=== PATIENT | male | born 1950 | race Caucasian/White ===

== ENCOUNTER 2024-09-26 13:19 | Emergency (ER) | payer MEDICARE, OTHER, SELFPAY ==
[2024-09-26 13:25] VITALS: BP 145/85
[2024-09-26 16:40] VITALS: BP 134/85
--- NOTE | 2024-09-26 17:08 | ED.GENMED ---
History of Present Illness
General
Chief Complaint: Dizziness
Source: patient
Exam Limitations: none
Time Seen by Provider: 09/26/24 15:41
Nursing documentation reviewed up to this point in time: agreed with
History of Present Illness
History of Present Illness:
74 y/o M cardiomyoapthy, CHF, previous prostate CA
pacer
vertigo
here because of a dizzy spell while on the way to the cafeteria at [facility]
pt has dementia and lives with his who has worse dementia
daughte ris here saying that she believes her mom's fear of leaving the apartment makes her dad not get enough to eat and drink and thinks he has been dehydrated
apparently according to staff who witnessed, pt was walking to the dining area and turned the corner and felt dizzy and started to fall but was caught by someone
he never passed out
he actually doesn't have real recollection of this event becuase of his dementia, which is typical for him
daughter says that he may be a little worse at the moment but he is stressed and hugnry
she doesn't believe he has been eating well
pt does have long h istory
Past History
Past History
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
Social History
Tobacco: Non-smoker
Alcohol: None
Personal:
Living: with family
Phy Exam
Physical Exam
Physical Exam:
GENERAL: Alert , in no apparent distress
HEAD: NCAT
EYE: pupils equal and reactive, no nystagmus, no photophobia, mildly pale
NECK: Supple,full rom, nontender
ENT: o/p clr, mmm.
CARDIAC: Regular rate and rhythm . no edema
LUNGS: Clear breath sounds bilaterally, no acute respiratory distress, no wheezes/rales/rhonchi
ABDOMEN: Soft, without focal tenderness, no r/g, no cvat
NEUROLOGICAL: Alert and orientedx 2-3, poor memory, poor recall of events; , cn intact, no facial asymmetry, 5/5 strength in UE/LE, sensation intact, romberg neg, ambulates without assistance, neg pronator drift
SKIN: Warm and dry, skin intact.
MUSCULOSKELETAL: No edema, well perfused.
PSYCH: Normal and appropriate interaction.
Course
Orders/Labs/Results
Orders:
Orders
09/26/24 17:07
Orthostatic VS- Treatment ONCE
pacemaker [Interrogate Pacemaker- Treatment] ONCE
09/26/24 17:08
Electrocardiogram (*1) Urgent
Reason for Study: Other
Other Reason for Exam: dizziness
EKG- Treatment ONCE
09/26/24 17:13
Complete Blood Count/With Diff Urgent
Comprehensive Metabolic Panel Urgent
Magnesium Urgent
Troponin I Urgent
09/26/24 18:02
0.9% Sodium Chloride 500 ml [Nss] 500 ml IV BOLUS
09/26/24 18:29
Urinalysis Reflex To Culture Urgent
Date Specimen was Collected: 09/26/24
Time Specimen was Collected: 18:28
Urine Microscopic Reflex Cult Urgent
Urine Culture Urgent
LINDA Source: U
Specimen Description:
Date Specimen was Collected: 09/26/24
Time Specimen was Collected: 18:28
Abnormal Lab Results
09/26/24 09/26/24
17:13 18:29
RBC 3.98 L 10^6/uL
(4.70-6.10)
Hgb 12.6 L g/dL
(13.0-18.0)
Hct 36.4 L %
(39.0-52.0)
MCH 31.7 H pg
(27.0-31.0)
Monocytes % 9.7 H %
(1.7-9.3)
Carbon Dioxide 32 H mmol/L
(22-30)
Total Protein 6.2 L g/dl
(6.3-8.2)
Leukocyte Esterase Rfl 1+ A
(Negative)
Urine Bacteria (Reflex) Few A
(Negative)
09/26/24 17:13
09/26/24 17:13
Vital Signs
Initial and Last Documented VS:
Initial Vital Signs
Temp Pulse Resp BP Pulse Ox
36.9 C 60 16 145/85 98
09/26/24 13:25 09/26/24 13:25 09/26/24 13:25 09/26/24 13:25 09/26/24 13:25
Last Documented Vital Signs
Temp Pulse Resp BP Pulse Ox
36.9 C 60 18 134/85 97
09/26/24 13:25 09/26/24 16:40 09/26/24 16:40 09/26/24 16:40 09/26/24 16:40
MDM/Problems Addressed
Differential Diagnosis Includes:
near sycnope, vertigo
MDM/Problems Addressed:
74 y/o M
h/o dizzy spells dx as vertigo but described as tunnel vision or off balance feeling
was walking and had one of these episodes causing him to almost fall, caught by staff at his assisted living; pt has dementia and has signivficant dementia and daughter believes he hasn't been eating/drinking well and is dehydated, as a
confounder
but that this episode today probalby was one of his typical dizzy spells
since bieng here, he is at his baseline mostly, a little more confused at times but pretty standard she thinks
asymtpoamtic, able to walk tot he bathroom
hungry, hadn't eaten
work up with ekg paced rhythm, trop neg, wbc normal, hg 12.6, bun 30
probably deydrated
pacer interrogated and i spoke witht e rep, no events
offered ivf but pt ate here and wants to go home
will send UA off and pending Urine culture; hold abx;
*Critical Care Note
Total Time (30-74mins, 75-104mins- exclusive of procedures): Not Applicable
ED Attending Note
-
Portions of this chart may have been created with voice recognition software.� Occasional wrong word or��sound alike� substitutions may have occurred due to the inherent limitations of voice recognition software.
Discharge Plan
Departure
Patient Disposition: Home (Routine Discharge)
Date of Disposition: 09/26/24
Time of Disposition: 18:24
Patient with high blood pressure during this ER visit?: No
Condition: Fair
Covid-19: Not Applicable
Discharge Problem:
Dizziness, Dehydration
Instructions: Dizziness, Nonvertigo, (DC)
Referrals:
Yasmin Del Angel, [Family Provider] - Follow up in 2-3 days
Activity Restrictions/Additional Instructions:
YOU WERE PROBABLY A LITTLE DEHYDRATED TODAY WHICH CAUSED THE DIZZINESS
YOU NEED TO MAKE SURE YOU ARE EATING 3 MEALS A DAY AND STAYING HYDRATED
YOUR PACER IS WORKING WELL
RETURN FOR ANY CONCERNS.
Interventions
Interventions:
*Risk Screen - Suicide Last Done: 09/26/24 13:25
*Neglect/Abuse Screening Last Done: 09/26/24 13:25
*Nursing Disposition Last Done: 09/26/24 18:48
ED- Neurological Assessment Last Done: 09/26/24 16:29
ED Swallowing Screen Last Done: 09/26/24 17:55
Discharge Date and Time
Discharge Date/Time: 09/26/24 18:48
Print Language: SOMALI
[2024-09-26 17:28] LABS: % Basophils 0.5 % (0-2); % Eosinophils 5.9 % (0-6); % Immature Granulocytes 0.5 % (0-0.5); % Lymphocytes 29.5 % (20.5-51.1); % Monocytes 9.7 % (1.7-9.3); % Neutrophils 53.9 % (42.2-75.2); Absolute Eosinophils 0.4 10^3/uL (0-0.7); Absolute Monocytes 0.6 10^3/uL (0.1-0.6); Absolute Neutrophils 3.6 10^3/uL (1.4-6.5); Hematocrit 36.4 % (39.0-52.0); Hemoglobin 12.6 g/dL (13.0-18.0); Mean Corp Hgb Conc. 34.6 g/dL (33.0-37.0); Mean Corpuscular Hgb 31.7 pg (27.0-31.0); Mean Corpuscular Volume 91.5 fL (80.0-94.0); Mean Platelet Volume 10.1 fL (7.4-10.4); Nucleated Red Blood Cells % 0 % (-); Platelet Count 132 10^3/uL (130-400); Red Blood Cell Count 3.98 10^6/uL (4.70-6.10); Red Cell Dist. Width 13.4 % (11.5-14.5); White Blood Cell Count 6.6 10^3/uL (4.8-10.8)
[2024-09-26 17:38] LABS: ALT (SGPT) 27 U/L (0-50); AST (SGOT) 35 U/L (17-59); Albumin 3.7 g/dl (3.5-5.0); Alkaline Phosphatase 67 U/L (38-126); Blood Urea Nitrogen 15 mg/dl (9-20); Calcium 9.1 mg/dl (8.4-10.2); Carbon Dioxide 32 mmol/L (22-30); Chloride 106 mmol/L (98-107); Glucose 96 mg/dl (70-99); Magnesium 2.2 mg/dl (1.6-2.3); Potassium 4.7 mmol/L (3.5-5.1); Sodium 141 mmol/L (135-145); Total Bilirubin 0.9 mg/dl (0.2-1.3); Total Protein 6.2 g/dl (6.3-8.2); eGFR > 60.00
[2024-09-26 17:47] LABS: Troponin I < 0.012 ng/ml
[2024-09-26 18:37] LABS: Urine Albumin Negative (Neg - Trace); Urine Bilirubin Negative (Negative); Urine Character Clear (Clear); Urine Color Straw; Urine Glucose Negative (Negative); Urine Ketone Negative (Negative); Urine Leukocyte 1+ (Negative); Urine Nitrite Negative (Negative); Urine Occult Blood Negative (Negative); Urine Urobilinogen Negative (Neg - 1+)
[2024-09-26 18:53] LABS: Urine Bacteria Few (Negative); Urine Red Blood Cell 0-2 /HPF (0-2); Urine Squamous Cell 0-2 /LPF (Few); Urine White Cell 0-2 /HPF (0-5)
== END 2024-09-26 18:48 | disposition home or self-care (01) ==
LOC: EMR 13:19
PROVIDERS: Physician Assistant; EMERGENCY PHYSICIAN Emergency Medicine; FAMILY PHYSICIAN Family Medicine
DX: E86.0 Dehydration (principal); R42 Dizziness and giddiness; F03.90 Unspecified dementia, unspecified severity, without behavioral disturbance, psychotic disturbance, mood disturbance, and anxiety; I11.0 Hypertensive heart disease with heart failure; I50.9 Heart failure, unspecified; Z85.46 Personal history of malignant neoplasm of prostate; Z95.0 Presence of cardiac pacemaker
CPT/HCPCS: 99284; 93288; 80053; 81003; 81015; 83735; 84484; 85025; 87077; 87086; 93005

== ENCOUNTER 2025-02-26 09:01 | Emergency (ER) | payer MEDICARE, OTHER, SELFPAY ==
[2025-02-26 09:09] VITALS: BP 128/78
[2025-02-26 09:10] VITALS: BMI 29.3
--- NOTE | 2025-02-26 09:39 | ED.GENMED ---
Addendum entered and electronically signed by Andrey Beckman PA-C 02/28/25 07:04:
Urine culture with greater than 100,000 colony-forming units of presumptive E. coli. On Keflex. Sensitivities pending
Addendum entered and electronically signed by Carolina Vickers DO 02/26/25 14:22:
Patient's daughter was present at time of discharge. I reviewed all test results and treatment recommendations with her. She felt comfortable with this plan. Patient was discharged in good condition in her care
Original Note:
History of Present Illness
General
Chief Complaint: Dizziness
Time Seen by Provider: 02/26/25 09:13
Nursing documentation reviewed up to this point in time: agreed with
History of Present Illness
History of Present Illness:
74-year-old male presents to the ER for evaluation of vertigo. Patient admits that this has been an ongoing issue for at least the last several weeks. It makes him feel unsteady with ambulation but he does not use any walking assist devices as
daily. He does also have a history of dementia and vertigo. He denies any recent illness. He states he has been eating and drinking without difficulty. He does not believe that he took any medications for his symptoms this morning. He denies
ear pain. No change in vision. No focal weakness. No paresthesias to arms or legs. He denies any syncope or trauma
Past History
Past History
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
Social History
Tobacco: Non-smoker
Alcohol: None
Personal:
Living: with family
Phy Exam
Physical Exam
Physical Exam:
. Patient is awake, alert, oriented to person only, head is normocephalic atraumatic, wearing glasses, PERRL, EOMI, no nystagmus, bilateral tympanic membranes are within normal limits, no erythema, external auditory canals are normal, mucous
membranes moist, tongue is midline, no carotid bruits, no JVD, heart regular rate and rhythm not murmurs or ectopy, lungs are clear to auscultation without wheezes rales or rhonchi, abdomen is soft and nontender, 2+ DP and radial pulses present
symmetric, no peripheral edema noted, no dysdiadochokinesia, no ataxia, no pronator drift, no facial asymmetry noted, sensation intact symmetric x 4, GCS is 14 due to confusion
Course
Orders/Labs/Results
Orders:
Orders
02/26/25 09:21
ECG [Electrocardiogram (*1)] Urgent
Reason for Study: Vertigo / Dizzy
EKG- Treatment ONCE
02/26/25 09:25
CT Head W/o Iv Contrast Urgent
Comment:
Reason For Exam: vertigo
CR Chest - 2 Views Urgent
Comment:
Reason For Exam: cva
02/26/25 09:28
Complete Blood Count/With Diff Urgent
Comprehensive Metabolic Panel Urgent
02/26/25 09:42
Meclizine [Antivert] 25 mg PO NOW STA
02/26/25 11:44
Urinalysis Reflex To Culture Urgent
Date Specimen was Collected: 02/26/25
Time Specimen was Collected: 11:43
Urine Microscopic Reflex Cult Urgent
Urine Culture Urgent
LINDA Source: U
Specimen Description:
Date Specimen was Collected: 02/26/25
Time Specimen was Collected: 11:43
02/26/25 13:38
Cephalexin Monohydrate [Keflex] 500 mg PO NOW STA
Abnormal Lab Results
02/26/25 02/26/25
09:28 11:44
RBC 4.50 L 10^6/uL
(4.70-6.10)
MPV 10.7 H fL
(7.4-10.4)
Absolute Monos (auto) 0.8 H 10^3/uL
(0.1-0.6)
Monocytes % 10.2 H %
(1.7-9.3)
Eosinophils % 7.2 H %
(0-6)
BUN 23 H mg/dl
(9-20)
Glucose 106 H mg/dl
(70-99)
Ur Occult Blood Reflex 1+ A
(Negative)
Urine Nitrite (Reflex) Positive A
(Negative)
Leukocyte Esterase Rfl 1+ A
(Negative)
Urine Bacteria (Reflex) Many A
(Negative)
02/26/25 09:28
02/26/25 09:28
Vision CBC and chemistries are without significant abnormality
Vital Signs
Initial and Last Documented VS:
Initial Vital Signs
Temp Pulse Resp BP Pulse Ox
98.2 F 60 16 128/78 97
02/26/25 09:09 02/26/25 09:09 02/26/25 09:09 02/26/25 09:09 02/26/25 09:09
Last Documented Vital Signs
Temp Pulse Resp BP Pulse Ox
98.2 F 60 13 114/101 98
02/26/25 09:09 02/26/25 13:00 02/26/25 13:00 02/26/25 13:00 02/26/25 12:00
MDM/Problems Addressed
Differential Diagnosis Includes:
Differential diagnosis to consider but not limited to electrolyte dyscrasia, occult infection, intracranial hemorrhage, intracranial mass, M�ni�re's, exacerbation of chronic peripheral vertigo along with other etiology
Chronic conditions affecting care:
. Dementia, vertigo
*Radiology
Radiology exam reviewed: preliminary read by ED provider (. I independently viewed and interpreted two-view chest x-ray showing no acute process in comparison to prior films from 05/22/2021-pacer present, scarring noted left lung base chronic but
improved) and radiology read reviewed (IMPRESSION: No acute intracranial abnormality noted. Mild senescent white matter changes. Mild to moderate atrophy.)
*Pulse Oximetry
SaO2: 97
Oxygen Mode of Delivery: Room air
Patient hypoxic: no
*EKG
Interpreted by ED Provider?: Yes (I dependently viewed and interpreted twelve-lead EKG showing paced rhythm, rate 60, leftward axis, nonspecific tracing without evidence for ST elevation, similar to prior from 09/26/2024)
*Bench Repair Technician Interpretation
Rate: normal (I independently viewed and interpreted rhythm strip showing paced rhythm, no ectopy)
*Critical Care Note
Total Time (30-74mins, 75-104mins- exclusive of procedures): Not Applicable
Data Reviewed
Review of Other/Old Records Reveals: Records (I reviewed [facility] record brought to the ER with the patient from his residence at [facility] including his medication list and prior medical history which includes Alzheimer's, GERD,
constipation and vertigo along with prior pacemaker placed)
Update Note
Update Note:
Patient able to ambulate with a steady gait. Feeling better after meclizine. Urinalysis does show bacteria, will initiate Keflex. In review of electronic medical record he had a urine culture from earlier this year that was positive for
susceptible E. coli. Will plan for patient discharged back to long-term care facility
ED Attending Note
-
Portions of this chart may have been created with voice recognition software.� Occasional wrong word or��sound alike� substitutions may have occurred due to the inherent limitations of voice recognition software.
Discharge Plan
Departure
Patient Disposition: Home (Routine Discharge)
Date of Disposition: 02/26/25
Time of Disposition: 13:39
Patient with high blood pressure during this ER visit?: No
Discharge Problem:
Vertigo, Urinary tract infection
Instructions: Vertigo (a type of dizziness), Urinary tract infection (DC)
Prescriptions:
New
meclizine 25 mg tablet
25 mg PO TID PRN (Reason: dizziness) Qty: 14 0RF
cephalexin 500 mg tablet
500 mg PO Q12H Qty: 10 0RF
Referrals:
Janelle,Johanna, DO [Family Provider, General]
Interventions
Interventions:
*Risk Screen - Suicide Last Done: 02/26/25 09:09
*General Assessment Last Done: 02/26/25 09:09
*Neglect/Abuse Screening Last Done: 02/26/25 09:09
ED- Neurological Assessment Last Done: 02/26/25 09:09
ED Swallowing Screen Last Done: 02/26/25 10:00
Discharge Date and Time
Print Language: CENTRAL AFRICAN
[2025-02-26] MEDS: ANTIVERT 25 MG PO (10:02)
[2025-02-26 10:06] VITALS: BP 127/77
[2025-02-26 10:07] LABS: ALT (SGPT) 25 U/L (0-50); AST (SGOT) 30 U/L (17-59); Albumin 4.1 g/dl (3.5-5.0); Alkaline Phosphatase 56 U/L (38-126); Blood Urea Nitrogen 23 mg/dl (9-20); Calcium 9.2 mg/dl (8.4-10.2); Carbon Dioxide 30 mmol/L (22-30); Chloride 107 mmol/L (98-107); Estimated Creatinine Clearance 70 ml/min; Glucose 106 mg/dl (70-99); Potassium 4.7 mmol/L (3.5-5.1); Sodium 140 mmol/L (135-145); Total Protein 6.6 g/dl (6.3-8.2); eGFR > 60.00
[2025-02-26 10:14] LABS: Hematocrit 41.1 % (39.0-52.0); Hemoglobin 13.8 g/dL (13.0-18.0); Mean Corp Hgb Conc. 33.6 g/dL (33.0-37.0); Mean Corpuscular Volume 91.3 fL (80.0-94.0); Nucleated Red Blood Cells % 0 % (-); Platelet Count 136 10^3/uL (130-400); Red Cell Dist. Width 13.3 % (11.5-14.5)
[2025-02-26 11:00] VITALS: BP 123/76
[2025-02-26 11:54] LABS: Urine Character Slightly Cloudy (Clear)
[2025-02-26 12:00] VITALS: BP 125/78
[2025-02-26 12:08] LABS: Urine Red Blood Cell 0-2 /HPF (0-2)
[2025-02-26 13:00] VITALS: BP 114/101
[2025-02-26] MEDS: KEFLEX 500 MG PO (13:53)
[2025-02-26 14:00] VITALS: BP 114/72
--- NOTE | 2025-02-26 14:05 | ED.GENMED ---
History of Present Illness
General
Chief Complaint: Dizziness
Time Seen by Provider: 02/26/25 09:13
History of Present Illness
History of Present Illness:
74-year-old male presents to the ER from his assisted living facility for further evaluation of vertigo. Patient reports that he has experienced vertigo for the last several weeks. He denies any preceding incident or trigger. He does not believe
that he is on any medications for his symptoms. He denies any recent illness. He denies otalgia. He denies change in vision. He denies any difficulty with eating and drinking. He does have a prior history of Alzheimer's and may not be the most
reliable historian. He reports that he feels unsteady with ambulation. He denies any syncope or trauma. No chest pain. No palpitations
Past History
Past History
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
Social History
Tobacco: Non-smoker
Alcohol: None
Personal:
Living: with family
Review of Systems
Review of Systems
Allergies reviewed?: Yes
Phy Exam
Physical Exam
Physical Exam:
Patient is awake, alert, appears in no acute distress, oriented to person only, moving all extremities symmetrically without focal deficit, head is normocephalic atraumatic, PERRL, EOMI, no nystagmus, no carotid bruits, no JVD, heart regular rate
and rhythm without murmurs or ectopy, lungs are clear to auscultation without wheezes rales or rhonchi, pacer is present left anterior chest wall, no rashes, abdomen is soft and nontender, no peripheral edema noted, 2+ DP pulses present symmetric
bilateral lower extremities, 2+ radial pulses present bilateral wrist, no dysdiadochokinesia, no ataxia, no pronator drift, GCS is 14 due to confusion
NIH Stroke Score
Level of Consciousness: 0 - Alert
LOC questions: 0-Answers both correctly
LOC Commands: 0-Performs both correctly
Best Gaze: 0-Normal
Visual Pozo: 0=Normal, no visual loss
Facial palsy: 0=Normal, symmetrical
Motor - Right Arm: 0=No drift 10 seconds
Motor - Left Arm: 0=No drift 10 seconds
Motor - Right Le-No drift 5 seconds
Motor - Left Le-No drift 5 seconds
Limb Ataxia: 0-Absent
Sensation: 0-Normal
Best Language: 0-No aphasia
Dysarthria: 0-Normal
Extinction and Inattention: 0-No abnormality
Total Score:: 0
Course
Orders/Labs/Results
Orders:
Orders
02/26/25 09:21
ECG [Electrocardiogram (*1)] Urgent
Reason for Study: Vertigo / Dizzy
EKG- Treatment ONCE
02/26/25 09:25
CT Head W/o Iv Contrast Urgent
Comment:
Reason For Exam: vertigo
CR Chest - 2 Views Urgent
Comment:
Reason For Exam: cva
02/26/25 09:28
Complete Blood Count/With Diff Urgent
Comprehensive Metabolic Panel Urgent
02/26/25 09:42
Meclizine [Antivert] 25 mg PO NOW STA
02/26/25 11:44
Urinalysis Reflex To Culture Urgent
Date Specimen was Collected: 02/26/25
Time Specimen was Collected: 11:43
Urine Microscopic Reflex Cult Urgent
Urine Culture Urgent
LINDA Source: U
Specimen Description:
Date Specimen was Collected: 02/26/25
Time Specimen was Collected: 11:43
02/26/25 13:38
Cephalexin Monohydrate [Keflex] 500 mg PO NOW STA
Abnormal Lab Results
02/26/25 02/26/25
09:28 11:44
RBC 4.50 L 10^6/uL
(4.70-6.10)
MPV 10.7 H fL
(7.4-10.4)
Absolute Monos (auto) 0.8 H 10^3/uL
(0.1-0.6)
Monocytes % 10.2 H %
(1.7-9.3)
Eosinophils % 7.2 H %
(0-6)
BUN 23 H mg/dl
(9-20)
Glucose 106 H mg/dl
(70-99)
Ur Occult Blood Reflex 1+ A
(Negative)
Urine Nitrite (Reflex) Positive A
(Negative)
Leukocyte Esterase Rfl 1+ A
(Negative)
Urine Bacteria (Reflex) Many A
(Negative)
02/26/25 09:28
02/26/25 09:28
CBC and chemistries without significant dyscrasia. Urinalysis shows positive nitrates and many bacteria concerning for infection
Vital Signs
Initial and Last Documented VS:
Initial Vital Signs
Temp Pulse Resp BP Pulse Ox
98.2 F 60 16 128/78 97
02/26/25 09:09 02/26/25 09:09 02/26/25 09:09 02/26/25 09:09 02/26/25 09:09
Last Documented Vital Signs
Temp Pulse Resp BP Pulse Ox
98.2 F 60 13 114/101 98
02/26/25 09:09 02/26/25 13:00 02/26/25 13:00 02/26/25 13:00 02/26/25 12:00
*Pulse Oximetry
SaO2: 98
Oxygen Mode of Delivery: Room air
ED Attending Note
-
Portions of this chart may have been created with voice recognition software.� Occasional wrong word or��sound alike� substitutions may have occurred due to the inherent limitations of voice recognition software.
Discharge Plan
Departure
Patient Disposition: Home (Routine Discharge)
Date of Disposition: 02/26/25
Time of Disposition: 13:39
Patient with high blood pressure during this ER visit?: No
Discharge Problem:
Vertigo, Urinary tract infection
Instructions: Vertigo (a type of dizziness), Urinary tract infection (DC)
Prescriptions:
New
meclizine 25 mg tablet
25 mg PO TID PRN (Reason: dizziness) Qty: 14 0RF
cephalexin 500 mg tablet
500 mg PO Q12H Qty: 10 0RF
Referrals:
Johanna Luis, DO [Family Provider, General]
Interventions
Interventions:
*Risk Screen - Suicide Last Done: 02/26/25 09:09
*General Assessment Last Done: 02/26/25 09:09
*Neglect/Abuse Screening Last Done: 02/26/25 09:09
ED- Neurological Assessment Last Done: 02/26/25 09:09
ED Swallowing Screen Last Done: 02/26/25 10:00
Discharge Date and Time
Print Language: MALTESE
== END 2025-02-26 14:37 | disposition home or self-care (01) ==
LOC: EMR 09:01
PROVIDERS: EMERGENCY PHYSICIAN Emergency Medicine; FAMILY PHYSICIAN Hospitalist
DX: N39.0 Urinary tract infection, site not specified (principal); R42 Dizziness and giddiness; I11.0 Hypertensive heart disease with heart failure; I50.9 Heart failure, unspecified; F03.90 Unspecified dementia, unspecified severity, without behavioral disturbance, psychotic disturbance, mood disturbance, and anxiety
CPT/HCPCS: 99285; 70450; 71046; 80053; 81003; 81015; 85025; 87077; 87086; 87186; 93005

== ENCOUNTER → 2025-03-19 17:28 | Outpatient (REF) | payer MEDICARE, OTHER, SELFPAY ==
[2025-03-23 09:45] LABS: Urine Character Slightly Cloudy (Clear)
[2025-03-23 09:54] LABS: Urine Red Blood Cell 0-2 /HPF (0-2); Urine White Cell 21-25 /HPF (0-5)
== END ==
LOC: OLABMERCHI 17:28
PROVIDERS: ATTENDING PHYSICIAN Hospitalist
DX: N39.0 Urinary tract infection, site not specified (principal)
CPT/HCPCS: 81003; 81015; 87086; 87088; 87186

== ENCOUNTER → 2025-05-12 17:14 | Outpatient (REF) | payer MEDICARE, OTHER, SELFPAY ==
[2025-05-14 18:26] LABS: Urine Character Cloudy (Clear)
[2025-05-14 18:47] LABS: Urine Red Blood Cell 0-2 /HPF (0-2); Urine White Cell 21-25 /HPF (0-5)
== END ==
LOC: OLABMERCHI 17:14
PROVIDERS: ATTENDING PHYSICIAN Hospitalist
DX: N39.0 Urinary tract infection, site not specified (principal)
CPT/HCPCS: 81003; 81015; 87077; 87086

== ENCOUNTER → 2025-05-20 10:37 | Outpatient (REF) | payer MEDICARE, OTHER, SELFPAY ==
[2025-05-20 11:21] LABS: Hematocrit 38.9 % (39.0-52.0); Hemoglobin 13.0 g/dL (13.0-18.0); Mean Corp Hgb Conc. 33.4 g/dL (33.0-37.0); Mean Corpuscular Volume 92.0 fL (80.0-94.0); Nucleated Red Blood Cells % 0 % (-); Platelet Count 131 10^3/uL (130-400); Red Cell Dist. Width 13.3 % (11.5-14.5)
[2025-05-20 14:01] LABS: Blood Urea Nitrogen 15 mg/dl (9-20); Calcium 8.8 mg/dl (8.4-10.2); Carbon Dioxide 30 mmol/L (22-30); Chloride 104 mmol/L (98-107); Glucose 97 mg/dl (70-99); Potassium 4.7 mmol/L (3.5-5.1); Sodium 135 mmol/L (135-145); eGFR > 60.00
== END ==
LOC: OLABMERCHI 10:37
PROVIDERS: ATTENDING PHYSICIAN Hospitalist
DX: N39.0 Urinary tract infection, site not specified (principal); E78.5 Hyperlipidemia, unspecified; F32.A Depression, unspecified
CPT/HCPCS: 36415; 80048; 85025